=== PATIENT | female | born 1960 | race Caucasian/White ===

== ENCOUNTER → 2016-09-05 | Outpatient (CLI) | payer BC ==
--- NOTE | 2016-09-06 13:39 | MM ---
Reason for exam: screening (asymptomatic). Last mammogram was performed 1 year and 4 months ago. History: Patient is postmenopausal. Family history of breast cancer in 2 maternal aunts. Took hormonal contraceptives for 2 years. Physical Findings: A clinical breast exam by your physician is recommended on an annual basis and results should be correlated with mammographic findings. MG 3D Screening Mammo W/Cad Bilateral CC and MLO view(s) were taken. Prior study comparison: May 18, 2015, bilateral MG 3d screening mammo w/cad. October 21, 2013, bilateral MG screening mammo w CAD. The breast tissue is heterogeneously dense. This may lower the sensitivity of mammography. Finding: There are typically benign round calcifications in both breasts. There is a chronic nodularity in the right breast. There is no discrete abnormality. ASSESSMENT: Benign, BI-RAD 2 RECOMMENDATION: Routine screening mammogram of both breasts in 1 year.
== END | disposition home or self-care (01) ==
LOC: RADMAMWWP 08:26
PROVIDERS: ATTEND Family Medicine
DX: Z12.31 Encounter for screening mammogram for malignant neoplasm of breast (principal)
CPT/HCPCS: 77063; G0202

== ENCOUNTER → 2016-11-29 | Outpatient (CLI) | payer BC ==
--- NOTE | 2016-11-29 12:44 | XR ---
EXAMINATION TYPE: XR knee complete LT DATE OF EXAM: 11/29/2016 COMPARISON: NONE HISTORY: Pain TECHNIQUE: Four views are submitted. FINDINGS: Mild narrowing the medial compartment and patellofemoral joint with mild hypertrophic changes. Small amount of fluid in the suprapatellar bursa. Osseous structures are intact. No acute fracture seen. IMPRESSION: 1. Mild osteoarthritis with small amount of fluid in the suprapatellar bursa. Correlate with MRI as c linically warranted.
== END | disposition home or self-care (01) ==
LOC: RADXRMAIN 12:28
PROVIDERS: ATTEND Physician Assistant
DX: M17.12 Unilateral primary osteoarthritis, left knee (principal)

== ENCOUNTER → 2016-12-05 | Outpatient (CLI) | payer BC ==
--- NOTE | 2016-12-05 18:54 | CONS ---
CONSULTATION DATE OF CONSULTATION: 12/05/2016 This is a 56-year-old lady who has been evaluated in the sleep center for obstructive sleep apnea-hypopnea syndrome. HISTORY OF PRESENT ILLNESS/SLEEP-WAKE EVALUATION: Patient had a sleep study in 2009, when she was documented to have severe obstructive sleep apnea-hypopnea syndrome, but for different reasons after that treatment was not started. At the present time, patient's sleep schedule is from 9:30 p.m. to 5:30 a.m. on working days and from 11 p.m. to 7 a.m. on weekends. Sometimes she has problems falling asleep. No TV in bedroom. She has had witnessed episodes of stopped breathing during sleep. She wakes up from sleep 4 times, with 1 episode of nocturia. No history of hypnagogic hallucinations, sleep paralysis or cataplexy. She worries about her sleep. [place] Sleepiness Scale increased to 10. PAST MEDICAL HISTORY: Positive for Divine's thyroiditis. PAST SURGICAL HISTORY: 1. Resection of thyroid. 2. Appendectomy. 3. Nasal surgery after several nasal fractures. SOCIAL HISTORY: Negative for smoking. Alcohol consumption very rarely. MEDICATIONS: Synthroid 0.88 mcg. FAMILY HISTORY: Hypertension, heart problems, hyperlipidemia, stroke, cancer, diabetes, during sleep. PHYSICAL EXAM: Pleasant lady without distress. VITAL SIGNS: BP 138/78, HR 78, RR 16, height 5 feet 3 inches, weight 140, BMI 24.7. Neck 12 inches in circumference. Temperature 97.9. Oxygen saturation at room air 98%. HEENT: PERRLA, EOMI. Evaluation of oropharynx showed tongue protrudes midline; low position of soft palate. Restriction of nasal breathing bilaterally. NECK: Supple. No JVD. Thyroid is not palpable. LUNGS: Clear to percussion and to auscultation. Good air exchange. No wheezing or rhonchi. HEART: S1, S2 irregularly irregular. ABDOMEN: Soft, non-tender. Bowel sounds present. EXTREMITIES: No clubbing or cyanosis. BED OPERATOR: Awake, alert and oriented x3. Cranial nerves 2 to 7 intact. There is no fasciculation or atrophy noted. No focal deficits observed. IMPRESSION: 1. History of severe obstructive sleep apnea-hypopnea syndrome documented 7 years ago. Snoring, witnessed episodes of stopped breathing during sleep at the present time, low position of soft palate, excessive sleepiness, [place] Sleepiness Scale of 10; obstructive sleep apnea-hypopnea syndrome. 2. Hypothyroidism. 3. History of Divine's thyroiditis, status post thyroid resection. 4. Status post appendectomy. 5. Status post several nasal fractures. 6. Status post nasal surgery. 7. Restriction of nasal breathing. PLAN: 1. Home sleep apnea test for evaluation of patient's breathing during sleep and to confirm obstructive sleep apnea-hypopnea syndrome. 2. CPAP titration for correction of respiratory abnormalities. On the previous sleep study, patient had 21 central apneas. 3. Sleep hygiene with regular time in bed for at least 8 hours. 4. No driving if feeling any sleepiness. Thank you very much for referring this patient for consultation. Sincerely, Paco Valdovinos MD, PhD, FAASM Diplomat of [place] [employer] [place] [employer] [facility] [place] MMODL / CAROLN: [id number] /
== END ==
LOC: SLEEP 16:32
PROVIDERS: ATTEND Internal Medicine
DX: G47.33 Obstructive sleep apnea (adult) (pediatric) (principal); E03.9 Hypothyroidism, unspecified; Z90.89 Acquired absence of other organs; Z98.890 Other specified postprocedural states; Z79.899 Other long term (current) drug therapy
CPT/HCPCS: 99211

== ENCOUNTER 2016-12-24 07:02 | Emergency (ER) | payer BC ==
[2016-12-24 07:10] VITALS: RESP 18; TEMP 97.9
--- NOTE | 2016-12-24 07:32 | ED ---
General Adult HPI - General Chief complaint: Extremity Injury, Upper Stated complaint: fall,shoulder pain Time Seen by Provider: 12/24/16 07:14 Source: patient, RN notes reviewed, old records reviewed Mode of arrival: ambulatory Limitations: physical limitation - History of Present Illness Initial comments: 56-year-old female presents for evaluation of left shoulder pain. Patient states that at approximately 8 PM last night she fell in her kitchen, tripped on some spilled water. She fell to her left side. Denies any head or neck injury. Patient's left shoulder pain has steadily worsened over the evening. She is left-handed. She's been lifting with her right arm. Pain is significantly worse with movement. Denies any numbness or tingling in the left upper extremity. Denies chest pain or shortness of breath. Denies any abdominal pain. Denies any other injury. - Related Data Home Medications Medication Instructions Recorded Confirmed Levothyroxine Sodium [Synthroid] 88 mcg PO HS 10/21/13 12/24/16 Ascorbic Acid [Vitamin C] 500 mg PO DAILY 12/24/16 12/24/16 Calcium Carbonate [Calcium] 600 mg PO DAILY 12/24/16 12/24/16 Cholecalciferol [Vitamin D3] 1,000 unit PO DAILY 12/24/16 12/24/16 Cla 1 tab PO DAILY 12/24/16 12/24/16 Magnesium 200 mg PO DAILY 12/24/16 12/24/16 Multivitamins, Thera [Multivitamin 1 tab PO DAILY 12/24/16 12/24/16 (formulary)] Vitamin E 1,000 unit PO DAILY 12/24/16 12/24/16 Previous Rx's Medication Instructions Recorded HYDROcodone/APAP 5-325MG [Helen 1 tab PO Q6HR PRN #24 tab 12/24/16 5-325] Allergies Allergy/AdvReac Type Severity Reaction Status Date / Time doxycycline calcium Allergy Severe Rash/Hives Verified 12/24/16 07:34 [From Vibramycin] doxycycline hyclate Allergy Severe Rash/Hives Verified 12/24/16 07:34 [From Vibramycin] doxycycline monohydrate Allergy Severe Rash/Hives Verified 12/24/16 07:34 [From Vibramycin] Penicillins Allergy Severe Rash/Hives Verified 12/24/16 07:34 Review of Systems ROS Statement: Those systems with pertinent positive or pertinent negative responses have been documented in the HPI. ROS Other: All systems not noted in ROS Statement are negative. Past Medical History Past Medical History: Thyroid Disorder History of Any Multi-Drug Resistant Organisms: None Reported Past Surgical History: Ablation Additional Past Surgical History / Comment(s): THYROID Past Psychological History: No Psychological Hx Reported Smoking Status: Never smoker Past Alcohol Use History: None Reported Past Drug Use History: None Reported General Exam Limitations: physical limitation General appearance: alert, in no apparent distress Head exam: Present: atraumatic, normocephalic Eye exam: Present: normal appearance, PERRL ENT exam: Present: normal exam Neck exam: Present: normal inspection, full ROM. Absent: tenderness Respiratory exam: Present: normal lung sounds bilaterally, respiratory distress Cardiovascular Exam: Present: regular rate, normal rhythm GI/Abdominal exam: Present: soft. Absent: distended, tenderness Extremities exam: Present: normal capillary refill, other (Left upper extremity : Tenderness over the humeral head and neck. No tenderness at the before meals joint, range of motion limited by pain, neurovascular intact.) Neurological exam: Present: alert, oriented X3 Psychiatric exam: Present: normal affect, normal mood Skin exam: Present: warm, dry, intact. Absent: cyanosis, diaphoretic Course Vital Signs 12/24/16 07:04 Temperature 97.9 F Pulse Rate 69 Respiratory 18 Rate Blood Pressure 160/84 O2 Sat by Pulse 99 Oximetry Medical Decision Making - Medical Decision Making 56-year-old female with left shoulder pain status post fall. X-rays are obtained. Negative for fracture dislocation. Patient is placed in a left upper extremity sling and given orthopedic follow-up. She'll also follow up with primary care physician in the next several days. Patient is informed that if symptoms persist she may require MRI of the shoulder. Diagnosis: Left shoulder sprain Disposition Clinical Impression: Strain of shoulder Disposition: HOME SELF-CARE Condition: Good Instructions: Shoulder Sprain (ED) Prescriptions: HYDROcodone/APAP 5-325MG [Helen 5-325] 1 tab PO Q6HR PRN #24 tab PRN Reason: Pain Referrals: Cali Bajwa DO [Primary Care Provider] - 1-2 days John Paul Herman MD [STAFF PHYSICIAN] - 1-2 days Time of Disposition: 08:26
--- NOTE | 2016-12-24 08:18 | XR ---
Left shoulder HISTORY: Pain and trauma, limited 3 views of the left shoulder No comparisons Bone mineralization, joint spaces and alignment are within normal limits. Overlying artifact on the f rontal view. Left lung apex as visualized is normal. Mild arthropathy of the acromioclavicular joint, distal acromial spur suspected. IMPRESSION: No fracture or dislocation. Shoulder MRI may be of benefit.
[2016-12-24 08:48] VITALS: BP 148/70; PULSE 64
== END 2016-12-24 08:50 | disposition home or self-care (01) ==
LOC: EC 07:02
DX: S46.912A Strain of unspecified muscle, fascia and tendon at shoulder and upper arm level, left arm, initial encounter (principal); E07.9 Disorder of thyroid, unspecified; Z79.899 Other long term (current) drug therapy; Z88.0 Allergy status to penicillin; Z88.1 Allergy status to other antibiotic agents; W01.0XXA Fall on same level from slipping, tripping and stumbling without subsequent striking against object, initial encounter; Y92.000 Kitchen of unspecified non-institutional (private) residence as the place of occurrence of the external cause
CPT/HCPCS: 99284

== ENCOUNTER → 2017-10-07 | Outpatient (CLI) | payer BC ==
--- NOTE | 2017-10-09 10:40 | MM ---
Reason for exam: screening (asymptomatic). Last mammogram was performed 1 year and 1 month ago. History: Patient is postmenopausal. Family history of breast cancer in 2 maternal aunts. Took hormonal contraceptives for 2 years. Physical Findings: A clinical breast exam by your physician is recommended on an annual basis and results should be correlated with mammographic findings. MG 3D Screening Mammo W/Cad Bilateral CC and MLO view(s) were taken. Prior study comparison: September 05, 2016, bilateral MG 3d screening mammo w/cad. May 18, 2015, bilateral MG 3d screening mammo w/cad. The breast tissue is heterogeneously dense. This may lower the sensitivity of mammography. No significant changes when compared with prior studies. ASSESSMENT: Benign, BI-RAD 2 RECOMMENDATION: Routine screening mammogram of both breasts in 1 year.
== END | disposition home or self-care (01) ==
LOC: RADMAMWWP 07:40
PROVIDERS: ATTEND Family Medicine
DX: Z12.31 Encounter for screening mammogram for malignant neoplasm of breast (principal)
CPT/HCPCS: 77063; 77067

== ENCOUNTER → 2017-11-05 | Outpatient (CLI) | payer BC ==
--- NOTE | 2017-11-05 10:07 | XR ---
EXAMINATION TYPE: XR ankle complete LT DATE OF EXAM: 11/05/2017 COMPARISON: NONE HISTORY: Pain FINDINGS: Three views of the ankle demonstrate the ankle mortise to be intact and symmetric. The joint spaces are preserved. The osseous structures are intact. IMPRESSION: 1. No definite acute fracture or dislocation, if symptoms persist follow-up study in 7 to 10 days wou ld be suggested.
== END | disposition home or self-care (01) ==
LOC: RADXRMAIN 09:15
PROVIDERS: ATTEND Family Medicine
DX: M25.572 Pain in left ankle and joints of left foot (principal)

== ENCOUNTER → 2018-01-27 | Outpatient (CLI) | payer BC ==
--- NOTE | 2018-01-28 09:12 | US ---
EXAMINATION TYPE: US extremity nonvasc mass RT DATE OF EXAM: 01/27/2018 COMPARISON: NONE CLINICAL HISTORY: R22.31 Swelling,Mass,Lump Right Upper Limb. Pt states palpable lump right lateral f orearm x few weeks/ denies pain Isoechoic lesion at pt's palpable= 1.1 x 0.5 x 0.8 cm/ This area appears non-vascular with superfic ial vein adjacent, but does not communicate with lesion IMPRESSION: 1. Nonspecific palpable region. Small lipoma could be considered. There is some vascularity adjacent to this structure. Consider MRI with contrast for additional evaluation.
== END ==
LOC: RADUSWWP 15:36
PROVIDERS: ATTEND Family Medicine
DX: R22.31 Localized swelling, mass and lump, right upper limb (principal)

== ENCOUNTER → 2018-12-02 | Outpatient (CLI) | payer BC ==
--- NOTE | 2018-12-03 08:43 | MM ---
Reason for exam: screening (asymptomatic). Last mammogram was performed 1 year and 2 months ago. History: Patient is postmenopausal. Family history of breast cancer in 2 maternal aunts. Took hormonal contraceptives for 2 years. Physical Findings: A clinical breast exam by your physician is recommended on an annual basis and results should be correlated with mammographic findings. MG 3D Screening Mammo W/Cad Bilateral CC and MLO view(s) were taken. Prior study comparison: October 07, 2017, bilateral MG 3d screening mammo w/cad. September 05, 2016, bilateral MG 3d screening mammo w/cad. The breast tissue is heterogeneously dense. This may lower the sensitivity of mammography. There is no discrete abnormality. No significant changes when compared with prior studies. ASSESSMENT: Negative, BI-RAD 1 RECOMMENDATION: Routine screening mammogram of both breasts in 1 year.
== END | disposition home or self-care (01) ==
LOC: RADMAMWWP 07:17
PROVIDERS: ATTEND Family Medicine
DX: Z12.31 Encounter for screening mammogram for malignant neoplasm of breast (principal)
CPT/HCPCS: 77063; 77067

== ENCOUNTER → 2020-05-01 | Outpatient (CLI) | payer BC ==
--- NOTE | 2020-05-03 09:46 | MM ---
Reason for exam: screening (asymptomatic). Last mammogram was performed 1 year and 5 months ago. History: Patient is postmenopausal and history of other cancer. Family history of breast cancer in 2 maternal aunts. Took hormonal contraceptives for 2 years. Physical Findings: A clinical breast exam by your physician is recommended on an annual basis and results should be correlated with mammographic findings. MG 3D Screening Mammo W/Cad Bilateral CC and MLO view(s) were taken. Prior study comparison: December 02, 2018, bilateral MG 3d screening mammo w/cad. October 07, 2017, bilateral MG 3d screening mammo w/cad. The breast tissue is heterogeneously dense. This may lower the sensitivity of mammography. There is chronic nodularity in the right breast laterally. Nodular asymmetric density inferior anterior right MLO view is more defined and incompletely disperses on 3D. ASSESSMENT: Incomplete: need additional imaging evaluation, BI-RAD 0 RECOMMENDATION: Special view mammogram of the right breast. (3D) If lesion persists on supplemental views, image directed ultrasound is recommended. [facility] will attempt to contact patient to return for supplemental views and ultrasound if indicated.
== END | disposition home or self-care (01) ==
LOC: RADMAMWWP 10:59
PROVIDERS: ATTEND Family Medicine
DX: Z12.31 Encounter for screening mammogram for malignant neoplasm of breast (principal)
CPT/HCPCS: 77063; 77067

== ENCOUNTER → 2020-05-04 | Outpatient (CLI) | payer BC ==
--- NOTE | 2020-05-04 09:24 | MM ---
Reason for exam: additional evaluation requested from abnormal screening. Last mammogram was performed less than 1 month ago. History: Patient is postmenopausal and history of other cancer. Family history of breast cancer in 2 maternal aunts. Took hormonal contraceptives for 2 years. Physical Findings: Nurse did not find any significant physical abnormalities on exam. MG 3D Work Up W/Cad RT Spot compression CC, spot compression MLO, and LM view(s) were taken of the right breast. Prior study comparison: May 01, 2020, bilateral MG 3d screening mammo w/cad. December 02, 2018, bilateral MG 3d screening mammo w/cad. The breast tissue is heterogeneously dense. This may lower the sensitivity of mammography. Inferior subareolar nodular asymmetry disperses on additional views. On lateral 3D images, a 7mm low density circumscribed nodule becomes apparent, not seen on other views, suspected cyst. Precautionary 6 month follow up recommended. These results were verbally communicated with the patient and result sheet given to the patient on 05/04/20. ASSESSMENT: Probably benign, BI-RAD 3 RECOMMENDATION: Follow-up diagnostic mammogram of the right breast in 6 months.
== END | disposition home or self-care (01) ==
LOC: RADMAMWWP 07:45
PROVIDERS: ATTEND Family Medicine
DX: R92.8 Other abnormal and inconclusive findings on diagnostic imaging of breast (principal)
CPT/HCPCS: 77061; 77065

== ENCOUNTER → 2020-10-27 | Outpatient (CLI) | payer BC ==
--- NOTE | 2020-10-27 11:45 | MM ---
Reason for exam: follow-up at short interval from prior study. Last mammogram was performed 6 months ago. History: Patient is postmenopausal and history of other cancer. Family history of breast cancer in 2 maternal aunts. Took hormonal contraceptives for 2 years. Physical Findings: Nurse did not find any significant physical abnormalities on exam. MG 3D Diag Mammo W/Cad RT CC and MLO view(s) were taken of the right breast. Prior study comparison: May 01, 2020, bilateral MG 3d screening mammo w/cad. December 02, 2018, bilateral MG 3d screening mammo w/cad. There are scattered fibroglandular densities. There is chronic nodularity in the right breast. No significant new findings when compared with previous films. These results were verbally communicated with the patient and result sheet given to the patient on 10/27/20. ASSESSMENT: Benign, BI-RAD 2 RECOMMENDATION: Return to routine screening mammogram schedule for both breasts. Back on schedule.
== END | disposition home or self-care (01) ==
LOC: RADMAMWWP 08:26
PROVIDERS: ATTEND Family Medicine
DX: N64.89 Other specified disorders of breast (principal); Z78.0 Asymptomatic menopausal state; Z80.3 Family history of malignant neoplasm of breast
CPT/HCPCS: 77061; 77065

== ENCOUNTER → 2022-08-14 | Outpatient (CLI) | payer BC ==
--- NOTE | 2022-08-14 08:18 | XR ---
EXAMINATION TYPE: XR chest 2V DATE OF EXAM: 08/14/2022 COMPARISON: NONE TECHNIQUE: PA and lateral views submitted. HISTORY: Cough FINDINGS: The lungs are clear and there is no pneumothorax, pleural effusion, or focal pneumonia. Heart size normal and no overt failure. Osseous structures demonstrate hypertrophic and degenerative changes of the spine. Atherosclerotic change of the aorta. Hyperinflation suggests COPD. IMPRESSION: 1. No acute process. Correlate for COPD.
--- NOTE | 2022-08-15 09:54 | MM ---
Reason for Exam: Screening (asymptomatic). Last mammogram was performed 1 year(s) and 1 month(s) ago. Patient History: Menarche at age 13. First Full-Term at age 21. Postmenopausal. Other cancer. Patient used Hormonal Contraceptives for 2 years. Maternal aunt had breast cancer. Maternal aunt had breast cancer. Risk Values: [place] 5 year model risk: 1.3%. NCI Lifetime model risk: 6.4%. Prior Study Comparison: 05/04/2020 Right Diagnostic Mammogram, [facility]. 10/27/2020 Right Diagnostic Mammogram, [facility]. 06/19/2021 Bilateral Screening Mammogram, [facility]. Tissue Density: The breast tissue is heterogeneously dense. This may lower the sensitivity of mammography. Findings: Analyzed By CAD. Circumscribed oval nodule measuring 8 mm approximately 9:00 right breast anterior to middle depth minimally larger from 6 to 7 mm in 2019. Suspect a small cyst or other benign etiology. This can be confirmed with ultrasound. On the left, small area of asymmetric density laterally appears more defined. It incompletely disperses on 3-D images. Very small size, possible superimposition shadows especially as there is no correlate on the MLO view. Further evaluation recommended. Otherwise, no significant change. Overall Assessment: Incomplete: need additional imaging evaluation, BI-RAD 0 Management: Special View Mammogram of the left breast. Diagnostic Breast Ultrasound of the right breast. Targeted ultrasound on the right to the 9:00 position for possible 8mm cyst or fibroadenoma. Additional views left breast to include spot 3-D CC, 3-D CC rolled medial, and 3-D ML views. [facility] will attempt to contact patient to return for supplemental views and ultrasound if indicated. Electronically signed and approved by: Silas Velazquez M.D. Radiologist
== END | disposition home or self-care (01) ==
LOC: RADMAMWWP 07:21
PROVIDERS: ATTEND Family Medicine
DX: Z12.31 Encounter for screening mammogram for malignant neoplasm of breast (principal); R05.9 Cough, unspecified; Z78.0 Asymptomatic menopausal state; Z80.3 Family history of malignant neoplasm of breast
CPT/HCPCS: 71046; 77063; 77067

== ENCOUNTER → 2022-08-22 | Outpatient (CLI) | payer BC ==
--- NOTE | 2022-08-22 14:23 | MM ---
Reason for Exam: Additional evaluation requested from abnormal screening. Last screening mammogram was performed less than 1 month ago. Patient History: Menarche at age 13. First Full-Term at age 21. Postmenopausal. Other cancer. Patient used Hormonal Contraceptives for 2 years. Maternal aunt had breast cancer. Maternal aunt had breast cancer. Risk Values: [place] 5 year model risk: 1.3%. NCI Lifetime model risk: 6.4%. Prior Study Comparison: 10/27/2020 Right Diagnostic Mammogram, [facility]. 06/19/2021 Bilateral Screening Mammogram, [facility]. 08/14/2022 Bilateral MG 3D screening mammo w/cad, [facility]. Tissue Density: Left: The breast tissue is heterogeneously dense. This may lower the sensitivity of mammography. Findings: Analyzed By CAD. 6 mm area of nodular asymmetric density far peripheral, lateral aspect of left breast middle to posterior depth incompletely disperses on the rolled CC spot image just outside of the compression paddle. No clear correlate on the 3-D lateral view. Further ultrasound evaluation recommended. Overall Assessment: Incomplete: need additional imaging evaluation, BI-RAD 0 Management: Diagnostic Breast Ultrasound of both breasts. Electronically signed and approved by: Silas Velazquez M.D. Radiologist
--- NOTE | 2022-08-22 15:29 | USB ---
Reason for Exam: Additional evaluation requested from abnormal screening. Patient History: Menarche at age 13. First Full-Term at age 21. Postmenopausal. Other cancer. Patient used Hormonal Contraceptives for 2 years. Maternal aunt had breast cancer. Maternal aunt had breast cancer. Risk Values: [place] 5 year model risk: 1.3%. NCI Lifetime model risk: 6.4%. Technique: Method: Targeted. Prior Study Comparison: 10/27/2020 Right Diagnostic Mammogram, [facility]. 06/19/2021 Bilateral Screening Mammogram, [facility]. 08/14/2022 Bilateral MG 3D screening mammo w/cad, [facility]. Findings: The upper outer quadrant of the right breast, the lateral section of the breast of the left breast, the axilla of both breasts and the retroareolar of both breasts were scanned. Targeted ultrasound right breast upper outer quadrant 9:00 to 12:00 including the subareolar region and axilla. * *At the 9:00 position, 6 cm from the nipple, there is a 7 x 6 x 5 mm cystic appearing lesion with internal, vascular area or nodularity. Further tissue sampling is recommended to exclude a papilloma or other papillary lesion. * At the 10:00 position, 6 cm from the nipple, there is a small 5 mm cyst. Targeted ultrasound left breast laterally 11 clock to 6:00 position. * At the 3:00 position, 9 cm from the nipple, there is a small 6 x 6 x 3 mm cyst cluster. Probable mammographic correlate. Six-month follow-up mammogram recommended. * Some prominent but nonenlarged left axillary nodes are noted. Overall Assessment: Incomplete: need additional imaging evaluation, BI-RAD 0 Management: Diagnostic Breast Ultrasound of the right breast. 9:00 lesion. This appears to be a cyst with possible internal nodule. Also, six-month follow-up left breast diagnostic mammogram. Electronically signed and approved by: Silas Velazquez M.D. Radiologist
== END | disposition home or self-care (01) ==
LOC: RADMAMWWP 13:42
PROVIDERS: ATTEND Family Medicine
DX: R92.8 Other abnormal and inconclusive findings on diagnostic imaging of breast (principal); Z78.0 Asymptomatic menopausal state; Z80.3 Family history of malignant neoplasm of breast
CPT/HCPCS: 77061; 77065

== ENCOUNTER → 2022-09-03 | Day surgery (SDC) | payer BC ==
--- NOTE | 2022-09-10 08:45 | MM ---
Reason for Exam: Post Procedure Mammogram. Last screening mammogram was performed less than 1 month ago. Patient History: Menarche at age 13. First Full-Term at age 21. Postmenopausal. Other cancer. Patient used Hormonal Contraceptives for 2 years. Maternal aunt had breast cancer. Maternal aunt had breast cancer. Risk Values: Dahiana 5 year model risk: 1.3%. NCI Lifetime model risk: 6.4%. Prior Study Comparison: 09/05/2016 Bilateral Screening Mammogram, [facility]. 10/07/2017 Bilateral Screening Mammogram, [facility]. 12/02/2018 Bilateral Screening Mammogram, [facility]. 05/01/2020 Bilateral Screening Mammogram, [facility]. 05/04/2020 Right Diagnostic Mammogram, [facility]. 10/27/2020 Right Diagnostic Mammogram, [facility]. 06/19/2021 Bilateral Screening Mammogram, [facility]. 08/14/2022 Bilateral MG 3D screening mammo w/cad, [facility]. 08/22/2022 Left MG 3D work up w/cad , [facility]. Tissue Density: Right: The breast tissue is heterogeneously dense. This may lower the sensitivity of mammography. Pathology Description: Location: 9 o'clock. Marker Left Behind. Needle Type: Mammotome Cores: 5 Skin Nicks: 1 Gauge: 13 The procedure of ultrasound guided core biopsy was explained to the patient. Benefits, alternatives, and risks were discussed. An informed consent was then obtained. The 7 mm, 9:00 right breast lesion is identified and targeted for biopsy. Either a cyst with internal nodularity or prominent intramammary lymph node. The patient was placed in supine positioning for imaging and for the procedure. The overlying skin was prepped and draped in usual sterile fashion. Lidocaine was used as anesthetic into the skin and subcutaneous tissue followed by lidocaine/epinephrine up to area of concern in the right breast. Under ultrasound guidance, a 13-gauge vacuum-assisted mammotome Elite biopsy gun was used to obtain 5 core samples. Following this, a [employer] Top-Hat biopsy clip was left in lesion. The patient tolerated the procedure well without any immediate complication. The patient was kept in the radiology department for short stay after the procedure and then discharged home in stable condition. Postprocedure mammogram: The patient was transferred to mammography for physician ordered post procedure mammogram for clip placement verification. Postprocedure mammogram shows clip at the site of mammographic nodularity and some associated small hematoma formation. Impression: Successful, ultrasound guided core biopsy of area of concern in the 9:00 right breast, full pathology results to follow. Note small hematoma formation at the site of biopsy. Pathology Results: Result: Benign, Lymph node. RIGHT BREAST, NINE O'CLOCK, ULTRASOUND GUIDED NEEDLE CORE BIOPSY: Benign lymph node and adjacent fragment of benign breast tissue with fibrocystic changes including microcalcifications. Overall Assessment: Benign Assessment: MG diagnostic mammo RT wo CAD - Right: Benign, BI-RAD 2. Management: Diagnostic Breast Ultrasound of the right breast in 6 months. Electronically signed and approved by: Silas Velazquez M.D. Radiologist
== END ==
LOC: RADUSWWP 12:44
PROVIDERS: ATTEND Surgery
DX: N60.11 Diffuse cystic mastopathy of right breast (principal)
CPT/HCPCS: 88305; 77065; 19083; A4648

== ENCOUNTER 2022-10-23 09:07 | Emergency (ER) | payer BC ==
[2022-10-23 09:22] VITALS: BP 168/98; TEMP 97
--- NOTE | 2022-10-23 09:44 | XR ---
EXAMINATION TYPE: XR foot complete RT DATE OF EXAM: 10/23/2022 CLINICAL HISTORY: pain TECHNIQUE: Frontal, lateral and oblique images of the right foot are obtained. COMPARISON: None. FINDINGS: There is no acute fracture/dislocation evident. The joint spaces appear within normal torres its. The overlying soft tissue appears unremarkable. IMPRESSION: There is no acute fracture or dislocation. ICD 10 NO FRACTURE, INITIAL EVALUATION
--- NOTE | 2022-10-23 10:21 | ED ---
Lower Extremity Injury HPI - General Chief Complaint: Extremity Injury, Lower Stated Complaint: R foot Injury, dropped 20lb Dog Food Time Seen by Provider: 10/23/22 09:22 Source: patient, RN notes reviewed Mode of arrival: ambulatory Limitations: no limitations - History of Present Illness Initial Comments: 62-year-old female sent emergency Department with chief complaint of foot pain. She states that she had frozen dog food she is attempting to break on the ground states that she struck her foot. Patient went of pain, swelling. Denies any other injuries states is painful to ambulate. - Related Data Home Medications Medication Instructions Recorded Confirmed Levothyroxine Sodium [Synthroid] 88 mcg PO HS 10/21/13 08/23/22 Atorvastatin [Lipitor] 20 mg PO DAILY 08/23/22 08/23/22 Allergies Allergy/AdvReac Type Severity Reaction Status Date / Time doxycycline calcium Allergy Severe Rash/Hives Verified 10/23/22 09:22 [From Vibramycin] doxycycline hyclate Allergy Severe Rash/Hives Verified 10/23/22 09:22 [From Vibramycin] doxycycline monohydrate Allergy Severe Rash/Hives Verified 10/23/22 09:22 [From Vibramycin] Penicillins Allergy Severe Rash/Hives Verified 10/23/22 09:22 Review of Systems ROS Statement: Those systems with pertinent positive or pertinent negative responses have been documented in the HPI. ROS Other: All systems not noted in ROS Statement are negative. Past Medical History Past Medical History: Hyperlipidemia, Thyroid Disorder History of Any Multi-Drug Resistant Organisms: None Reported Past Surgical History: Appendectomy, Uterine Ablation Additional Past Surgical History / Comment(s): THYROID. Uterine ablation Past Anesthesia/Blood Transfusion Reactions: No Reported Reaction Past Psychological History: No Psychological Hx Reported Smoking Status: Never smoker Past Alcohol Use History: None Reported Past Drug Use History: None Reported General Exam Limitations: no limitations General appearance: alert, in no apparent distress Head exam: Present: atraumatic, normocephalic, normal inspection Eye exam: Present: normal appearance, PERRL, EOMI. Absent: scleral icterus, conjunctival injection, periorbital swelling ENT exam: Present: normal exam, normal oropharynx, mucous membranes moist Neck exam: Present: normal inspection, full ROM. Absent: tenderness, meningismus, lymphadenopathy Respiratory exam: Present: normal lung sounds bilaterally. Absent: respiratory distress, wheezes, rales, rhonchi, stridor Cardiovascular Exam: Present: regular rate, normal rhythm, normal heart sounds. Absent: systolic murmur, diastolic murmur, rubs, gallop, clicks Extremities exam: Present: other (Right foot there is an area of ecchymosis, tenderness over the midfoot. Neurovascular intact) Neurological exam: Present: alert Course Vital Signs 10/23/22 10/23/22 09:15 10:25 Temperature 97.0 F L 97.0 F L Pulse Rate 76 88 Respiratory 16 20 Rate Blood Pressure 168/98 O2 Sat by Pulse 99 98 Oximetry Medical Decision Making - Medical Decision Making Was pt. sent in by a medical professional or institution (, MELANIE, [facility]STER, urgent care, hospital, or longterm...) When possible be specific @ -No Did you speak to anyone other than the patient for history (EMS, parent, family, police, friend...)? What history was obtained from this source @ -No Did you review nursing and triage notes (agree or disagree)? Why? @ -I reviewed and agree with nursing and triage notes Were old charts reviewed (outside hosp., previous admission, EMS record, old EKG, old radiological studies, urgent care reports/EKG's, longterm records)? Report findings @ -No old charts were reviewed Differential Diagnosis (chest pain, altered mental status, abdominal pain women, abdominal pain men, vaginal bleeding, weakness, fever, dyspnea, syncope, headache, dizziness, GI bleed, back pain, seizure, CVA, palpatations, mental health, musculoskeletal)? @ -Right foot contusion, foot fracture EKG interpreted by me (3pts min.). @ -None X-rays interpreted by me (1pt min.). @ -X-ray 3 view right foot no acute fracture CT interpreted by me (1pt min.). @ -None done U/S interpreted by me (1pt. min.). @ -None done What testing was considered but not performed or refused? (CT, X-rays, U/S, labs)? Why? @ -None What meds were considered but not given or refused? Why? @ -None Did you discuss the management of the patient with other professionals (professionals i.e. , MELANIE, SHOE LASTER, lab, RT, psych nurse, dialysis social worker, director sales and trade marketing, teacher, sheriffs officer, correctional casework specialist)? Give summary @ -No Was smoking cessation discussed for >3mins.? @ -No Was critical care preformed (if so, how long)? @ -No Were there social determinants of health that impacted care today? How? (Homelessness, low income, unemployed, alcoholism, drug addiction, transportation, low edu. Level, literacy, decrease access to med. care, detention, rehab)? @ -No Was there de-escalation of care discussed even if they declined (Discuss DNR or withdrawal of care, Hospice)? DNR status @ -No What co-morbidities impacted this encounter? (DM, HTN, Smoking, COPD, CAD, Cancer, CVA, ARF, Chemo, Hep., AIDS, mental health diagnosis, sleep apnea, morbid obesity)? @ -None Was patient admitted / discharged? Hospital course, mention meds given and route, prescriptions, significant lab abnormalities, going to OR and other pertinent info. @ -Discharge patient is right foot contusion supportive treatment will be started return parameters were discussed. Undiagnosed new problem with uncertain prognosis? @ -No Drug Therapy requiring intensive monitoring for toxicity (Heparin, Nitro, Insulin, Cardizem)? @ -No Were any procedures done? @ -No Diagnosis/symptom? @ -Right foot contusion Acute, or Chronic, or Acute on Chronic? @ -Acute Uncomplicated (without systemic symptoms) or Complicated (systemic symptoms)? @ -Uncomplicated Side effects of treatment? @ -No Exacerbation, Progression, or Severe Exacerbation? @ -No Poses a threat to life or bodily function? How? (Chest pain, [place], [place], pneumonia, PE, COPD, DKA, ARF, appy, cholecystitis, CVA, Diverticulitis, Homicidal, Suicidal, threat to staff... and all critical care pts) @ -No Disposition Clinical Impression: Contusion of right foot Disposition: HOME SELF-CARE Condition: Stable Instructions (If sedation given, give patient instructions): Foot Contusion (ED) Additional Instructions: Please return to the Emergency Department if symptoms worsen or any other concerns. Is patient prescribed a controlled substance at d/c from ED?: No Referrals: Cali Bajwa DO [Primary Care Provider] - 1-2 days Time of Disposition: 10:21
[2022-10-23 10:40] VITALS: PULSE 88; RESP 20
== END 2022-10-23 10:25 | disposition home or self-care (01) ==
LOC: EC 09:07
DX: S90.31XA Contusion of right foot, initial encounter (principal); E78.5 Hyperlipidemia, unspecified; E07.9 Disorder of thyroid, unspecified; Z79.890 Hormone replacement therapy; Z79.899 Other long term (current) drug therapy; Z88.0 Allergy status to penicillin; Z88.8 Allergy status to other drugs, medicaments and biological substances; W22.8XXA Striking against or struck by other objects, initial encounter
CPT/HCPCS: 99283

== ENCOUNTER → 2023-10-01 | Outpatient (CLI) | payer BC ==
--- NOTE | 2023-10-01 12:49 | US ---
EXAMINATION TYPE: US thyroid st tissue head/neck DATE OF EXAM: 10/01/2023 COMPARISON: NONE CLINICAL INDICATION: Female, 63 years old with history of L04.0 ACUTE LYMPHADENITIS OF FACE, HEAD AND NECK; Pt states DrDora felt lump on right side of neck 1 month ago. Pt was sick 2 weeks ago. 2 lymph nodes seen on the right lateral neck with the appearance of a thickened cortex. These are adj acent to the right ECA and ICA. The largest is measuring 1.8 x 1.7 x 0.7cm IMPRESSION: Prominent lymph nodes are identified with thickened cortex. Consider CT correlation. Clinical correla tion advised as well.
== END | disposition home or self-care (01) ==
LOC: RADUSWWP 07:01
PROVIDERS: ATTEND Family Medicine
DX: L04.0 Acute lymphadenitis of face, head and neck (principal)
CPT/HCPCS: 76536

== ENCOUNTER → 2023-10-09 | Outpatient (CLI) | payer BC ==
--- NOTE | 2023-10-09 11:49 | CT ---
EXAMINATION TYPE: CT soft tissue neck wo con DATE OF EXAM: 10/09/2023 COMPARISON: Ultrasound dated 10/01/2023 HISTORY: Localized enlarged lymph nodes CT DLP: 297.[address] of the neck was performed from the skull base through the lung apices. The lack of cont rast does limit evaluation. AIRWAY: The supraglottic, glottic, and subglottic portions of the airwa y appear patent and free of mass. SALIVARY GLANDS: The submandibular and parotid glands are free of mass or inflammatory process. THYROID GLAND: No nodules or masses seen. LYMPH NODES: Mildly prominent lymph node seen left internal jugular chain measuring 1.1 cm short axis . Additional smaller subcentimeter lymph nodes seen within the bilateral internal jugular chains bila terally. LUNG APICES: No nodule or mass is seen. OTHER: Vascular structures are patent. No significant degenerative change of the cervical spine. N o abscess seen. IMPRESSION: Mildly prominent lymph node seen left internal jugular chain measuring 1.1 cm short axis. Additional smaller subcentimeter lymph nodes seen within the bilateral internal jugular chains bilaterally. Find ings may be reactive in nature. Correlate clinically.
== END | disposition home or self-care (01) ==
LOC: RADCTMAIN 06:42
PROVIDERS: ATTEND Family Medicine
DX: R59.0 Localized enlarged lymph nodes (principal)
CPT/HCPCS: 70490

== ENCOUNTER 2023-12-29 08:08 | Emergency (ER) | payer BC ==
--- NOTE | 2023-12-29 08:21 | ED ---
Upper Extremity HPI - General Chief Complaint: Extremity Injury, Upper Stated Complaint: R Wrist Injury Time Seen by Provider: 12/29/23 08:11 Source: patient, RN notes reviewed Mode of arrival: ambulatory Limitations: no limitations - History of Present Illness Initial Comments: 63-year-old female presents emergency department complaint of right wrist in jury. Patient states that she was trying to clean by mass as there was water in the house renovation. She states she tripped over a hole on the concrete causing her to fall. She complains of right wrist injury pain and swelling. Denies any head injury no loss conscious. Patient offers no other complaints. - Related Data Home Medications Medication Instructions Recorded Confirmed Levothyroxine Sodium [Synthroid] 88 mcg PO HS 10/21/13 08/23/22 Atorvastatin [Lipitor] 20 mg PO DAILY 08/23/22 08/23/22 Allergies Allergy/AdvReac Type Severity Reaction Status Date / Time doxycycline calcium Allergy Severe Rash/Hives Verified 10/23/22 09:22 [From Vibramycin] doxycycline hyclate Allergy Severe Rash/Hives Verified 10/23/22 09:22 [From Vibramycin] doxycycline monohydrate Allergy Severe Rash/Hives Verified 10/23/22 09:22 [From Vibramycin] Penicillins Allergy Severe Rash/Hives Verified 10/23/22 09:22 Review of Systems ROS Statement: Those systems with pertinent positive or pertinent negative responses have been documented in the HPI. ROS Other: All systems not noted in ROS Statement are negative. Past Medical History Past Medical History: Hyperlipidemia, Thyroid Disorder History of Any Multi-Drug Resistant Organisms: None Reported Past Surgical History: Appendectomy, Uterine Ablation Additional Past Surgical History / Comment(s): THYROID. Uterine ablation Past Anesthesia/Blood Transfusion Reactions: No Reported Reaction Past Psychological History: No Psychological Hx Reported Smoking Status: Never smoker Past Alcohol Use History: None Reported Past Drug Use History: None Reported General Exam Limitations: no limitations General appearance: alert, in no apparent distress Head exam: Present: atraumatic, normocephalic, normal inspection Eye exam: Present: normal appearance, PERRL, EOMI. Absent: scleral icterus, conjunctival injection, periorbital swelling ENT exam: Present: normal exam, mucous membranes moist Neck exam: Present: normal inspection, full ROM. Absent: tenderness, meningismus, lymphadenopathy Respiratory exam: Present: normal lung sounds bilaterally. Absent: respiratory distress, wheezes, rales, rhonchi, stridor Cardiovascular Exam: Present: regular rate, normal rhythm, normal heart sounds. Absent: systolic murmur, diastolic murmur, rubs, gallop, clicks Extremities exam: Present: other (Right wrist diffuse swelling, tenderness with palpation neurovascular intact no hand tenderness no proximal forearm tenderness) Course Vital Signs 12/29/23 08:11 Temperature 97.4 F L Pulse Rate 77 Respiratory 20 Rate Blood Pressure 167/91 O2 Sat by Pulse 99 Oximetry Procedures - Orthopedic Splinting/Casting Injury #1 Side: right Upper Extremity Injury Location: short arm, wrist Upper Extremity Immobilizer: volar splint, synthetic pre-padded splint Medical Decision Making - Medical Decision Making Was pt. sent in by a medical professional or institution (Dr. PA, [employer] EXAMINER, urgent care, hospital, or retirement...) When possible be specific @ -No Did you speak to anyone other than the patient for history (EMS, parent, family, police, friend...)? What history was obtained from this source @ -No Did you review nursing and triage notes (agree or disagree)? Why? @ -I reviewed and agree with nursing and triage notes Were old charts reviewed (outside hosp., previous admission, EMS record, old EKG, old radiological studies, urgent care reports/EKG's, retirement records)? Report findings @ -No old charts were reviewed Differential Diagnosis (chest pain, altered mental status, abdominal pain women, abdominal pain men, vaginal bleeding, weakness, fever, dyspnea, syncope, headache, dizziness, GI bleed, back pain, seizure, CVA, palpatations, mental health, musculoskeletal)? @ -Wrist sprain, wrist fracture EKG interpreted by me (3pts min.). @ -None X-rays interpreted by me (1pt min.). @ -X-ray right wrist showing distal radius fracture minimal displacement CT interpreted by me (1pt min.). @ -None done U/S interpreted by me (1pt. min.). @ -None done What testing was considered but not performed or refused? (CT, X-rays, U/S, labs)? Why? @ -None What meds were considered but not given or refused? Why? @ -None Did you discuss the management of the patient with other professionals (professionals i.e. , PA, [employer] EXAMINER, lab, RT, psych nurse, social worker school, supervisor grips, teacher, contracting officer, manager of case management)? Give summary @ -No Was smoking cessation discussed for >3mins.? @ -No Was critical care preformed (if so, how long)? @ -No Were there social determinants of health that impacted care today? How? (Homelessness, low income, unemployed, alcoholism, drug addiction, transportation, low edu. Level, literacy, decrease access to med. care, half-way, rehab)? @ -No Was there de-escalation of care discussed even if they declined (Discuss DNR or withdrawal of care, Hospice)? DNR status @ -No What co-morbidities impacted this encounter? (DM, HTN, Smoking, COPD, CAD, Cancer, CVA, ARF, Chemo, Hep., AIDS, mental health diagnosis, sleep apnea, morbid obesity)? @ -None Was patient admitted / discharged? Hospital course, mention meds given and route, prescriptions, significant lab abnormalities, going to OR and other pertinent info. @ -Discharged patient has right distal radius fracture patient was splinted and will follow-up with orthopedics. Undiagnosed new problem with uncertain prognosis? @ -No Drug Therapy requiring intensive monitoring for toxicity (Heparin, Nitro, Insulin, Cardizem)? @ -No Were any procedures done? @ -Splinting Diagnosis/symptom? @ -Distal right radius fracture Acute, or Chronic, or Acute on Chronic? @ -Acute Uncomplicated (without systemic symptoms) or Complicated (systemic symptoms)? @ -Uncomplicated Side effects of treatment? @ -No Exacerbation, Progression, or Severe Exacerbation? @ -No Poses a threat to life or bodily function? How? (Chest pain, [place], [place], pneumonia, PE, COPD, DKA, ARF, appy, cholecystitis, CVA, Diverticulitis, Homicidal, Suicidal, threat to staff... and all critical care pts) @ -No Disposition Clinical Impression: Fracture of right distal radius Disposition: HOME SELF-CARE Condition: Stable Instructions (If sedation given, give patient instructions): Arm Fracture in Adults (ED) Additional Instructions: Please return to the Emergency Department if symptoms worsen or any other concerns. Is patient prescribed a controlled substance at d/c from ED?: No Referrals: Cali Bajwa DO [Primary Care Provider] - 1-2 days Jason Watkins MD [STAFF PHYSICIAN] - 1-2 days Time of Disposition: 09:02
--- NOTE | 2023-12-29 08:52 | XR ---
EXAMINATION TYPE: XR wrist complete RT DATE OF EXAM: 12/29/2023 COMPARISON: NONE HISTORY: Pain TECHNIQUE: 3 views submitted. FINDINGS: There is a mildly displaced fracture of the distal radius transverse in orientation. Remaining osseou s structures intact. MCP joint arthropathy all digits. IMPRESSION: 1. Mildly displaced transverse fracture distal radius. [facility], , 12/29/2023 8:49 AM
[2023-12-29 09:06] VITALS: BP 160/97; PULSE 63; RESP 18; TEMP 97.5
== END 2023-12-29 09:09 | disposition home or self-care (01) ==
LOC: EC 08:08
CPT/HCPCS: 29125; 99283

== ENCOUNTER → 2024-09-03 | Outpatient (CLI) | payer BC ==
--- NOTE | 2024-09-03 18:34 | MM ---
Reason for Exam: Screening (asymptomatic). Last mammogram was performed 1 year(s) and 4 month(s) ago. Patient History: Menarche at age 13. First Full-Term at age 21. Postmenopausal. Other cancer. Patient used Hormonal Contraceptives for 2 years. 09/03/2022, Benign US biopsy breast VAD RT on the right side. Maternal aunt had breast cancer. Maternal aunt had breast cancer. Risk Values: Dahiana 5 year model risk: 1.7%. NCI Lifetime model risk: 7.1%. Prior Study Comparison: 08/14/2022 Bilateral MG 3D screening mammo w/cad, [facility]. 08/22/2022 Left MG 3D work up w/cad LT, [facility]. 09/03/2022 Right MG diagnostic mammo RT wo CAD, [facility]. 04/23/2023 Bilateral Diagnostic Ultrasound, Unknown. 04/23/2023 Bilateral Diagnostic Mammogram, [place]. Tissue Density: The breasts are heterogeneously dense, which may obscure small masses. Findings: Analyzed By CAD. Chronic nodularity on the right. Punctate regional calcifications in the anterior left breast are unchanged. There is no suspicious group of microcalcifications or new suspicious mass in either breast. Overall Assessment: Benign, BI-RAD 2 Management: Screening Mammogram of both breasts in 1 year. Patient should continue monthly self-breast exams. A clinical breast exam by your physician is recommended on an annual basis. This exam should not preclude additional follow-up of suspicious palpable abnormalities. Note on Dahiana scores and lifetime risk: 1. A Dahiana score greater than 3% is considered moderate risk. If this is the case, consider specialist referral to assess eligibility for a risk reducing agent. 2. If overall lifetime risk for the development of breast cancer is 20% or higher, the patient may qualify for future screening with alternating mammogram and breast MRI. [facility], , 09/03/2024 6:31 PM. Electronically signed and approved by: Silas Velazquez M.D. Radiologist
== END | disposition home or self-care (01) ==
LOC: RADMAMWWP 12:26
PROVIDERS: ATTEND Family Medicine
DX: Z12.31 Encounter for screening mammogram for malignant neoplasm of breast (principal); R92.333 Mammographic heterogeneous density, bilateral breasts; R92.1 Mammographic calcification found on diagnostic imaging of breast; Z78.0 Asymptomatic menopausal state; Z80.3 Family history of malignant neoplasm of breast; Z92.0 Personal history of contraception
CPT/HCPCS: 77063; 77067